=== PATIENT | female | born 1985 | race African-American/Black ===

== ENCOUNTER 2024-09-24 12:17 | Emergency (ER) | payer OTHER ==
[~2024-09-24] VITALS: Ht 144.8 cm; Wt 72.0 kg
[2024-09-24 12:34] VITALS: O2SAT 99
[2024-09-24 13:59] LABS: CLARITY URINE CLEAR (CLEAR); COLOR URINE YELLOW (YELLOW); GLUCOSE URINE NEGATIVE (NEGATIVE); KETONES URINE NEGATIVE (NEGATIVE); LEUKOCYTE ESTERASE URINE 2+ (NEGATIVE); NITRITE URINE NEGATIVE (NEGATIVE); OCCULT BLOOD URINE 3+ (NEGATIVE); PH URINE 7.0 (4.5-8.0); PROTEIN URINE NEGATIVE (NEGATIVE); SPECIFIC GRAVITY URINE 1.009 (1.005-1.030); UROBILINOGEN URINE 0.2 E.U./dL (0.2-1.0)
[2024-09-24 14:11] LABS: BACTERIA URINE 3+; RBC URINE 15-25 /hpf (0-2); SQUAMOUS EPITHELIAL CELL URINE 2+ /lpf (RARE/1+); WBC URINE 25-50 /hpf (0-2); YEAST URINE NONE SEEN
[2024-09-24] MEDS: KETOROLAC 15MG/ML VIAL IM ONE (14:40)
[2024-09-24 15:40] LABS: PLATELET 192 x1000/uL (130-400); RED BLOOD CELL COUNT 4.65 mill/uL (4.2-5.4); RED CELL DISTRIBUTION WIDTH 12.9 % (11.6-14.6)
[2024-09-24 15:53] LABS: HCG SCREEN NEGATIVE
[2024-09-24 15:54] LABS: CREATININE 0.6 mg/dL (0.6-1.0); UREA NITROGEN BLOOD 6 mg/dL (9-23)
[2024-09-24 15:56] LABS: ASPARTATE AMINOTRANSFERASE 15 IU/L (<34); BILIRUBIN TOTAL 0.7 mg/dL (0.1-1.0); PROTEIN TOTAL 7.2 g/dL (6.0-8.3)
[2024-09-24] MEDS ORDERED: TOPUD MT (16:28)
[2024-09-24] MEDS ORDERED: CEPH500C2 MT (16:28)
[2024-09-24 17:01] VITALS: BP 120/74; PULSE 75; RESP 16; TEMP 36.7; O2SAT 98
== END 2024-09-24 17:02 | disposition home or self-care (01) ==
LOC: ER 12:17
DX: N39.0 Urinary tract infection, site not specified (principal); Z79.899 Other long term (current) drug therapy
CPT/HCPCS: 80053; 81003; 81025; 84703; 85027; 87086; 87186; 87077; 36415; 74176; 96372; 99285; J1885; Z7610

== ENCOUNTER 2024-09-26 13:36 | Emergency (ER) | payer OTHER ==
[~2024-09-26] VITALS: Ht 144.8 cm; Wt 73.0 kg
[~2024-09-26 13:36] MED LIST: CEPH500C2 MT; TOPUD MT
[2024-09-26 13:45] VITALS: O2SAT 100
[2024-09-26 14:22] LABS: BASOPHILS % 0.4 % (0.0-2.0); EOSINOPHILS % 0.1 % (0.0-5.0); HEMATOCRIT. 42.2 % (36.0-48.0); HEMOGLOBIN. 14.0 g/dL (12.0-16.0); LYMPHOCYTES % 8.4 % (20.0-50.0); MEAN PLATELET VOLUME 9.9 fl (7.4-10.4); MONOCYTES % 7.0 % (2.0-8.0); NEUTROPHILS % 84.1 % (40.0-76.0); PLATELET 195 x1000/uL (130-400); RED BLOOD CELL COUNT 4.89 mill/uL (4.2-5.4); RED CELL DISTRIBUTION WIDTH 12.8 % (11.6-14.6)
[2024-09-26 14:34] LABS: CREATININE 0.6 mg/dL (0.6-1.0); UREA NITROGEN BLOOD < 5 mg/dL (9-23)
[2024-09-26 14:44] LABS: HCG SCREEN NEGATIVE
[2024-09-26] MEDS ORDERED: DIPHENHYDRAMINE 50MG/ML VIAL IV ONE (15:00)
[2024-09-26] MEDS ORDERED: SUMATRIPTAN SUCCINATE 6MG/0.5ML VIAL SUBCUT ONE (15:00)
[2024-09-26] MEDS ORDERED: PROCHLORPERAZINE 10MG/2ML VIAL IV ONE (15:00)
[2024-09-26] MEDS ORDERED: KETOROLAC 30MG/ML VIAL IV ONE (15:00)
[2024-09-26] MEDS ORDERED: DEXAMETHASONE 10 MG/ML VIAL IV ONE (15:00)
[2024-09-26] MEDS: KETOROLAC 30MG/ML VIAL IM ONE (15:30)
[2024-09-26] MEDS: SUMATRIPTAN SUCCINATE 6MG/0.5ML VIAL SUBCUT SCH (15:30)
[2024-09-26] MEDS: DIPHENHYDRAMINE 25MG CAPSULE PO ONE (15:30)
[2024-09-26] MEDS: DEXAMETHASONE 10 MG/ML VIAL PO ONE (15:30)
[2024-09-26] MEDS: PROCHLORPERAZINE 10MG/2ML VIAL IM ONE (15:30)
[2024-09-26] MEDS ORDERED: SUMA11AE2 BOTHNSTRLS (18:21)
[2024-09-26] MEDS ORDERED: KETO10TA2 MT (18:21)
[2024-09-26] MEDS ORDERED: NITR100C MT (18:21)
[2024-09-26 18:27] VITALS: BP 111/73; PULSE 72; RESP 16; TEMP 36.9; O2SAT 100
[2024-09-26 18:38] LABS: CLARITY URINE CLEAR (CLEAR); COLOR URINE DARK YELLOW (YELLOW); GLUCOSE URINE NEGATIVE (NEGATIVE); KETONES URINE 1+ (NEGATIVE); LEUKOCYTE ESTERASE URINE TRACE (NEGATIVE); NITRITE URINE NEGATIVE (NEGATIVE); OCCULT BLOOD URINE NEGATIVE (NEGATIVE); PH URINE 5.5 (4.5-8.0); PROTEIN URINE 1+ (NEGATIVE); SPECIFIC GRAVITY URINE 1.023 (1.005-1.030); UROBILINOGEN URINE 1.0 E.U./dL (0.2-1.0)
[2024-09-26 19:44] LABS: BACTERIA URINE 1+; RBC URINE 0-2 /hpf (0-2); SQUAMOUS EPITHELIAL CELL URINE 2+ /lpf (RARE/1+)
== END 2024-09-26 19:12 | disposition home or self-care (01) ==
LOC: ER 13:36
DX: N39.0 Urinary tract infection, site not specified (principal); R51.9 Headache, unspecified; Z79.899 Other long term (current) drug therapy
CPT/HCPCS: 99284; 80048; 81003; 84703; 85025; 36415; 96372; J1885; Q0163; J1100; J0780; J3030